=== PATIENT | male | born 1980 | race African-American/Black ===

== ENCOUNTER 2022-02-14 10:58 | Day surgery (SDC) | payer OTHER ==
[~2022-02-14 10:58] MED LIST: SODIUM CHLORIDE 0.9% 1,000 ML IV SCH
[2022-02-14] MEDS ORDERED: SODIUM CHLORIDE 0.9% 1,000 ML IV ONE (12:06)
[2022-02-14] MEDS ORDERED: METOCLOPRAMIDE 5 MG/ML 2 ML VIAL IVP STA (12:18)
[2022-02-14 12:43] LABS: Basophils # (A) 0.1 k/uL (0-0.2); Basophils % (A) 1 %; Eosinophils # (A) 0.1 k/uL (0-0.7); Eosinophils % (A) 1 %; HGB 17.7 gm/dL (13.0-17.5); Lymphocytes # (A) 1.7 k/uL (1.0-4.8); Lymphocytes % (A) 22 %; MCH 29.5 pg (25.0-35.0); MCHC 32.7 g/dL (31.0-37.0); MCV 90.4 fL (80.0-100.0); Mean Platelet Volume 7.7; Monocytes # (A) 0.3 k/uL (0-1.0); Monocytes % (A) 3 %; Neutrophils # (A) 5.5 k/uL (1.3-7.7); Neutrophils % (A) 71 %; Platelet Count 162 k/uL (150-450); RBC 5.98 m/uL (4.30-5.90); RDW 14.2 % (11.5-15.5); WBC 7.8 k/uL (3.8-10.6)
[2022-02-14 12:46] LABS: Calcium 9.4 mg/dL (8.4-10.2); Potassium 4.5 mmol/L (3.5-5.1)
[2022-02-14] MEDS: FAMOTIDINE 20 MG/2 ML VIAL IV SCH (13:04)
[2022-02-14] MEDS ORDERED: PHENYLEPHRINE-0.9% NACL SYG 1,000 MCG/10 ML SYRINGE ONE (15:07)
[2022-02-14] MEDS ORDERED: HEPARIN SODIUM,PORCINE 10,000 UNIT/ML 1 ML VIAL ONE (15:07)
[2022-02-14] MEDS ORDERED: SUCCINYLCHOLINE CHLORIDE 100 MG/5 ML SYR IV ONE (15:07)
[2022-02-14] MEDS ORDERED: fentaNYL (PF) 50 MCG/ML 2 ML AMP ONE (15:07)
[2022-02-14] MEDS ORDERED: ETOMIDATE 2 MG/ML 10 ML VIAL ONE (15:07)
[2022-02-14] MEDS ORDERED: LIDOCAINE 2% INJ 20 MG/ML (2 ML VIAL) ONE (15:07)
[2022-02-14] MEDS ORDERED: MIDAZOLAM 2 MG/2 ML VIAL ONE (15:07)
[2022-02-14] MEDS ORDERED: LIDOCAINE 1% INJ 10MG/ML (20 ML MDV) SQ ONE (15:51)
[2022-02-14] MEDS ORDERED: LIDOCAINE 1% PF 10 MG/ML (5 ML AMP) SQ ONE (15:51)
[2022-02-14] MEDS ORDERED: HEPARIN SOD,PORK IN 0.45% NACL 25,000 UNIT in 0.45% NACL 1 250ML.BAG IV ONE (15:55)
[2022-02-14] MEDS ORDERED: LACTATED RINGERS 1,000 ML IV ONE ×2 (15:55→18:55)
[2022-02-14] MEDS ORDERED: HEPARIN SODIUM,PORCINE 10,000 UNIT in SODIUM CHLORIDE 0.9% 1,000 ML IRRIGATION ONE (17:29)
[2022-02-14] MEDS ORDERED: IOPAMIDOL-370 100ML BTL INJ ONE (17:39)
--- NOTE | 2022-02-14 19:08 | P.HPCAR ---
History of Present Illness This is Dr. Chaves dictating an H/P on this patient The patient was interviewed and examined IMPRESSION / ASSESSMENT: Paroxysmal atrial fibrillation, symptomatic Hypertrophic cardio myopathy History of typical atrial flutter ablation PLAN: A. fib ablation with PVI and linear ablation and focus ablation as appropriate HPI Patient has recurrent episodes of paroxysmal atrial fibrillation He is underlying hypertrophic cardiomyopathy He is expressing palpitations at this time and is in A. fib with RVR No fever chills cough No chest discomfort no syncope ROS: No fever chills or rigors, no cough, phlegm or expectoration, no nausea, vomiting or diarrhea, no hematuria, dysuria, no musculoskeletal complaints, no strokes or seizures, no skin lesions. EXAMINATION: Afebrile 97 for 7F pulse rate 9010 beats a minute respirations normal blood pressure 140 296. His mercury Breath sounds are equal bilaterally but there are no rhonchi no crackles Heart sounds are irregular, soft systolic murmur Abdomen soft Extremities warm no edema No JVD REVIEW OF LABS, ECG & MEDICAL DATA White normal Hemoglobin 17 Normal electrolytes Creatinine 1.49 Physical Exam Vitals: Vital Signs Temp Pulse Resp BP Pulse Ox 02/14/22 15:08 97.7 F 96 16 142/96 100 Intake and Output 02/14/22 02/14/22 02/14/22 06:59 14:59 22:59 Intake Total 100 1773 Output Total 300 Balance 100 1473 Intake: IV 100 1773 Output: Urine 300 Other: Weight 81.1 kg 81.1 kg Past Medical History Additional Past Medical History / Comment(s): SEE CARDIAC HX IN [facility] History of Any Multi-Drug Resistant Organisms: None Reported Past Surgical History: Ablation Additional Past Surgical History / Comment(s): CARDIAC ABLATION X 2 IN [facility]. Past Anesthesia/Blood Transfusion Reactions: No Reported Reaction Additional Past Anesthesia/Blood Transfusion Reaction / Comment(s): HAS NEVER HAD GENERAL ANESTHESIA Past Psychological History: No Psychological Hx Reported Smoking Status: Current every day smoker Additional Past Alcohol Use History / Comment(s): HAS SMOKED OVER 20 YRS ABOUT 2 PPW Past Drug Use History: Marijuana Physical Examination Vital Signs Temp Pulse Resp BP Pulse Ox 02/14/22 15:08 97.7 F 96 16 142/96 100 Intake and Output 02/14/22 02/14/22 02/14/22 06:59 14:59 22:59 Intake Total 100 1773 Output Total 300 Balance 100 1473 Intake: IV 100 1773 Output: Urine 300 Other: Weight 81.1 kg 81.1 kg Results 02/14/22 12:15 02/14/22 12:15 CBC 02/14/22 Range/Units 12:15 WBC 7.8 (3.8-10.6) k/uL RBC 5.98 H (4.30-5.90) m/uL Hgb 17.7 H (13.0-17.5) gm/dL Hct 54.0 H (39.0-53.0) % Plt Count 162 (150-450) k/uL Comprehensive Metabolic Panel 02/14/22 Range/Units 12:15 Sodium 142 (137-145) mmol/L Potassium 4.5 (3.5-5.1) mmol/L Chloride 104 (98-107) mmol/L Carbon Dioxide 25 (22-30) mmol/L BUN 13 (9-20) mg/dL Creatinine 1.49 H (0.66-1.25) mg/dL Glucose 93 (74-99) mg/dL Calcium 9.4 (8.4-10.2) mg/dL Current Medications Generic Name Dose Route Start Last Admin Trade Name Freq PRN Reason Stop Dose Admin Famotidine 20 mg 02/14/22 12:30 02/14/22 13:04 Famotidine 20 Mg/2 Ml Vial IV 03/16/22 12:31 20 mg DAILY ROSHNI Administration Sodium Chloride 1,000 mls @ 20 mls/hr 02/14/22 06:07 Saline 0.9% IV 03/16/22 06:08 .Q24H ROSHNI Intake and Output 02/14/22 02/14/22 02/14/22 06:59 14:59 22:59 Intake Total 100 1773 Output Total 300 Balance 100 1473 Intake: IV 100 1773 Output: Urine 300 Other: Weight 81.1 kg 81.1 kg Patient Weight 02/15/22 06:59 Weight 81.1 kg 02/14/22 12:15 02/14/22 12:15
--- NOTE | 2022-02-14 19:15 | P.EPPROC ---
- EP Procedure Note Electrophysiology Procedure Note: PROCEDURE A. 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 fib ablation/pulmonary vein isolation of all veins using cryo- ablation Linear ablation in the left atrial roof, successful Focal ablation outside the right superior pulmonary vein posteriorly and and telemetry which resulted in for the organization of the tachycardia Complete entrance block in all 4 veins confirmed with voltage Complete line of block in the posterior left atrial roof confirmed with voltage mapping No evidence for phrenic nerve injury Esophageal deflection YES, left-sided esophagus Residual left atrial tachycardia 220-230 ms with a somewhat eccentric left atrial activation in the coronary sinus poles Electrical cardioversion with a synchronized shock across the chest YES, prolonged RI interval to273 ms sinus PROCEDURE DETAILS Patient was brought to the EP lab in a fasting state after obtaining written informed consent. Procedure performed under general anesthesia Esophagus was intubated. Esophageal temperature monitoring with circa catheter. Esophageal deflection with an endoscope to avoid hypothermia of the esophagus. After initial muscle relaxant use, muscle relaxants were not given thereafter in order to assess phrenic nerve during procedure. Patient prepped and draped as per protocol Cryo ablation-set up with standard preparation of the cryoablation tools done. Femoral Venous access obtained on the right and left groins and sheaths placed Diagnostic catheters for the high right atrium, phrenic nerve stimulation and pacing, His bundle, coronary sinus placed Intracardiac echo catheter placed. Long sheath placed in the right atrium Left and right transseptal catheterization performed under intracardiac echo guidance. Intravenous heparin with aCT above 300 Later, catheter positioning and balloon positioning in the left atrium and pulmonary veins, under intracardiac echo guidance Diagnostic EP study with coronary sinus pacing and recording Baseline measurements: QRS 130 ms, RI interval to 73 ms, QT 451 ms Transseptal catheterization performed RA pressure 27/16/22 LA pressure 42/21/29 Transseptal catheterization performed with standard sheath. The cryoablation sheath was then placed with an over the wire exchange without any acute complications. The cryoablation balloon was placed in the office of each pulmonary vein and all 4 pulmonary veins were isolated. IV dye was injected to confirm occlusion. Goal: achieve complete occlusion of the pulmonary vein, achieve -30 degrees C at 30 seconds and achieve -40 degrees C at 60 seconds and a time to effect of less than 60 seconds. If not, the balloon was repositioned to obtain this result After completion of Cryoblation with durations from 180-240 seconds, entrance block was confirmed with the Attain circular catheter in a roving fashion around the antrum of the pulmonary veins Phrenic nerve pacing was performed from the SVC, right innominate vein area and diaphragm voltage was monitored. Diaphragmatic contractions were also monitored manually for strength of contraction. At the end of the procedure the Achieve catheter was once again used to check for entrance block Phrenic nerve stimulation was performed to confirm diaphragmatic stimulation the end of the procedure Cine fluoroscopy was performed at the very end of the procedure to confirm movement of both diaphragms with inspiration and expiration At the end of the procedure the patient was extubated Venous sheaths were removed and hemostasis assured with a closure device PROCEDURES PERFORMED Diagnostic EP study CS pacing and recording Left and right transseptal catheterization 3-D mapping of the tachycardia Intracardiac echocardiography Pulmonary vein isolation with transseptal and comprehensive EPS, [id number] Left atrial roof line, +[id number] Focal ablation, left atrium, +[id number] Electrical cardioversion with a synchronized shock across the chest [id number] Long procedure Extended procedure duration on account of a very stiff fossa ovalis, very large left atrium with large pulmonary veins Segmental isolation of the left superior and the right superior pulmonary veins. Long left atrial roof but successful and complete linear ablation on the posterior aspect of the left atrial roof
[2022-02-14] MEDS ORDERED: ACETAMINOPHEN TAB 325 MG TAB PO PRN (19:19)
[2022-02-14] MEDS ORDERED: ACETAMINOPHEN IV (For NPO) 1,000 MG/100 ML VIAL IVPB ONE (19:40)
[2022-02-14] MEDS ORDERED: ACETAMINOPHEN IV (For NPO) 1,000 MG in EMPTY BAG 1 BAG IVPB ONE (20:00)
[2022-02-14] MEDS ORDERED: RIVAROXABAN 20 MG TAB PO SCH (21:00)
[2022-02-14] MEDS: FUROSEMIDE 40 MG TAB PO SCH (22:26)
[2022-02-15 03:54] VITALS: TEMP 98.1
[2022-02-15] MEDS: FAMOTIDINE 20 MG/2 ML VIAL IV SCH (07:07)
[2022-02-15 07:36] VITALS: BP 118/80; PULSE 70; RESP 18
--- NOTE | 2022-02-15 07:53 | P.DS ---
Providers Attending physician: Hayden Chaves Primary care physician: Alex Strauss [facility] Course: Patient is doing well from a cardiac standpoint. No chest discomfort dizziness lightheadedness No groin problems overnight On examination normal breath sounds No JVD S1 is normal S2 is normal soft systolic murmur Groins of healed well no hematoma Impression Recurrent paroxysmal atrial fibrillation Status post pulmonary vein isolation, left atrial linear ablation in the roof and focal ablation outside the antrum of the right superior pulmonary vein Greater organization of atrial fibrillation with somewhat eccentric activation Electrical cardioversion sinus rhythm First degree AV block 240 ms Twelve-lead EKG today shows sinus rhythm first degree AV block T-wave inversions V5 and V6 Plan continue xarelto Continue low-dose beta blockers Discharge home and follow with Dr. Garcia within a week Instructions given to the patient Plan - Discharge Summary Discharge Rx Participant: No New Discharge Prescriptions: New RX: Rivaroxaban [Xarelto] 20 mg PO DAILY #90 tab Discontinued Rivaroxaban [Xarelto] 25 mg PO DAILY No Action RX: Metoprolol Tartrate 25 mg PO QAM Discharge Medication List RX: Metoprolol Tartrate 25 mg PO QAM 02/13/22 [History] RX: Rivaroxaban [Xarelto] 20 mg PO DAILY #90 tab 02/14/22 [Rx] Follow up Appointment(s)/Referral(s): Rafael Pozo MD [STAFF PHYSICIAN] - 1 Week Activity/Diet/Wound Care/Special Instructions: Post EP study - Ablation instructions 1. Keep access sites dry for 2 days. 2. No heavy lifting or straining for 2 days. 3. Avoid bending the hips repeatedly for 2 days. 4. You may go up and down stairs slowly Call if the following is noted 1. Bleeding, increasing swelling or pain at the access sites. 2. Increasing chest discomfort, especially upon taking a deep breath. 3. Increasing shortness of breath, at rest or with exertion. 4. Undue cough / phlegm 5. Difficulty or pain while swallowing. 6. Pain or change in color in the extremities. 7. Fever, chills, rigors. 8. Increasing headache or neurologic symptoms. 9. Dizziness, fainting, palpitations Continue current medications without any change Continue Xarelto
[2022-02-15] MEDS: FUROSEMIDE 40 MG TAB PO SCH (08:26)
[2022-02-15] MEDS ORDERED: METOPROLOL TARTRATE 25 MG TAB PO SCH (09:00)
== END 2022-02-15 11:14 | disposition home or self-care (01) ==
LOC: CATHEP 10:58 → 6NMEDSUR 19:03 → CATHEP 02-15 11:14
PROVIDERS: ATTEND Internal Medicine Clinical Cardiac Electrophysiology
DX: I48.0 Paroxysmal atrial fibrillation (principal); I08.1 Rheumatic disorders of both mitral and tricuspid valves; I44.0 Atrioventricular block, first degree; I42.2 Other hypertrophic cardiomyopathy; I51.7 Cardiomegaly; R00.2 Palpitations; Z86.79 Personal history of other diseases of the circulatory system; F17.210 Nicotine dependence, cigarettes, uncomplicated; Z82.49 Family history of ischemic heart disease and other diseases of the circulatory system; Z97.2 Presence of dental prosthetic device (complete) (partial); Z87.19 Personal history of other diseases of the digestive system; Z79.01 Long term (current) use of anticoagulants; Z79.899 Other long term (current) drug therapy
CPT/HCPCS: 92960; 93656; 93657; 80048; 85025; C1894 ×3; C1769 ×5; C1760; C1730 ×2; C1759; C1893; C1733; C1766; C1732; J2250; J1644 ×2; J2765; J2001 ×2; J3010; J0131; J2370; J0330; Q9967; 80051; 82565; 84520; 85027; 87635

== ENCOUNTER → 2022-02-14 | Outpatient (CLI) | payer OTHER ==
[2022-02-14 12:15] LABS: HCT 50.2 % (39.0-53.0); HGB 16.2 gm/dL (13.0-17.5); MCH 29.1 pg (25.0-35.0); MCHC 32.3 g/dL (31.0-37.0); MCV 90.2 fL (80.0-100.0); Platelet Count 160 k/uL (150-450); RBC 5.56 m/uL (4.30-5.90); RDW 14.3 % (11.5-15.5); WBC 7.2 k/uL (3.8-10.6)
[2022-02-14 12:22] LABS: Potassium 5.1 mmol/L (3.5-5.1)
== END | disposition home or self-care (01) ==
LOC: LABPAT 11:08
PROVIDERS: ATTEND Internal Medicine Clinical Cardiac Electrophysiology
DX: Z01.812 Encounter for preprocedural laboratory examination (principal); I48.0 Paroxysmal atrial fibrillation
CPT/HCPCS: 80051; 82565; 84520; 85027; 87635; C9803

== ENCOUNTER 2023-09-17 11:33 | Inpatient (IN) | payer OTHER ==
--- NOTE | 2023-09-17 11:46 | ED ---
General Adult HPI - General Source: patient, family, RN notes reviewed Mode of arrival: ambulatory Limitations: altered mental status <Dioni Strong - Last Filed: 09/17/23 11:45> <Trung Pineda - Last Filed: 09/17/23 17:03> - General Stated complaint: medication reaction Time Seen by Provider: 09/17/23 11:45 - History of Present Illness Initial comments: 43-year-old male presents emergency Department with multiple complaints. Patient presents today for increasing swelling, confusion, altered mental status. Patient is here with family who states she is not answering questions appropriately the unsure exactly when this started but believes it started sometime yesterday. Patient was tried calling cardiology for medications for h is increase in swelling, cardiac history and advised him come emergency department. He does complain of headache. (Dioni Strong) This is a 43-year-old male who presents emergency Department as he is altered. According to the cousin she knows that he has had multiple ablations and does smoke marijuana but I did not she does not know much about his history. She states that he has not been taking his meds as of late. Patient is unable to give us any history because he is confused. Patient is alert and oriented 1 only. There is no other history available at this time. Cousin states that yesterday he was acting a little different according to her son but no specific symptoms been given. (Trung Pineda) - Related Data Home Medications Medication Instructions Recorded Confirmed Metoprolol Succinate [Toprol XL] 50 mg PO BID 09/17/23 09/17/23 Pantoprazole [Protonix] 40 mg PO DAILY 09/17/23 09/17/23 Allergies Allergy/AdvReac Type Severity Reaction Status Date / Time No Known Allergies Allergy Verified 09/17/23 13:26 Review of Systems ROS Other: All systems not noted in ROS Statement are negative. <Dioni Strong - Last Filed: 09/17/23 11:45> ROS Other: All systems not noted in ROS Statement are negative. <Trung Pineda - Last Filed: 09/17/23 17:03> ROS Statement: Those systems with pertinent positive or pertinent negative responses have been documented in the HPI. General Exam <Dioni Strong - Last Filed: 09/17/23 11:45> <Trung Pineda - Last Filed: 09/17/23 17:03> - General Exam Comments Initial Comments: Visual Physical Exam Vital signs reviewed General: Well-appearing, nontoxic, no acute distress. Head: Normocephalic, atraumatic Eyes: PERRLA, EOMI ENT: Airway patent Chest: Nonlabored breathing Skin: No visual rash, normal skin tone Neuro: Alert and oriented 3 Musculoskeletal: No gross abnormalities (Dioni Strong) GENERAL: Patient is well-developed and well-nourished. Patient is nontoxic and well- hydrated and is in no acute distress. ENT: Neck is soft and supple. No significant lymphadenopathy is noted. Oropharynx is clear. Moist mucous membranes. Neck has full range of motion without eliciting any pain. EYES: The sclera were anicteric and conjunctiva were pink and moist. Extraocular movements were intact and pupils were equal round and reactive to light. Eyelids were unremarkable. PULMONARY: Unlabored respirations. Good breath sounds bilaterally. No audible rales rhonchi or wheezing was noted. CARDIOVASCULAR: 150 bpm normal regular rhythm ABDOMEN: Soft and nontender with normal bowel sounds. SKIN: Skin is clear with no lesions or rashes and otherwise unremarkable. NEUROLOGIC: Patient is alert and oriented 1. Cranial nerves II through XII are grossly intact. Motor and sensory are also intact. Normal speech, volume and content. Symmetrical smile. MUSCULOSKELETAL: Normal extremities with adequate strength and full range of motion. LYMPHATICS: No significant lymphadenopathy is noted PSYCHIATRIC: Normal psychiatric evaluation. (Trung Pineda) Course Vital Signs 09/17/23 09/17/23 09/17/23 12:02 14:19 15:51 Temperature 97.5 F L Pulse Rate 144 H 101 H 80 Respiratory 20 18 20 Rate Blood Pressure 114/82 120/90 123/84 O2 Sat by Pulse 92 L 97 98 Oximetry Medical Decision Making <Dioni Strong - Last Filed: 09/17/23 11:45> - Lab Data Result diagrams: 09/17/23 12:26 09/17/23 12:26 <Trung Pineda - Last Filed: 09/17/23 17:03> - Medical Decision Making I completed the quick note portion of this chart signed Dioni Strong PA-C (Dioni Strong) EKG is interpreted by myself. EKG shows atrial flutter at 139 bpm QRS is 111 QT interval is 292 QTC is 388. Was pt. sent in by a medical professional or institution (STERLING Burton, SENIOR PATIENT ACCOUNT REPRESENTATIVE, urgent care, hospital, or prison...) When possible be specific @ -No Did you speak to anyone other than the patient for history (EMS, parent, family, police, friend...)? What history was obtained from this source @ -Patient's family member gave all the history Did you review nursing and triage notes (agree or disagree)? Why? @ -I reviewed and agree with nursing and triage notes Were old charts reviewed (outside hosp., previous admission, EMS record, old EKG, old radiological studies, urgent care reports/EKG's, prison records)? Report findings @ -I reviewed prior charts prior lab work Differential Diagnosis (chest pain, altered mental status, abdominal pain women, abdominal pain men, vaginal bleeding, weakness, fever, dyspnea, syncope, headache, dizziness, GI bleed, back pain, seizure, CVA, palpatations, mental health, musculoskeletal)? @ -Differential Altered Mental Status: Hypoglycemia, DKA, hypercapnia, ETOH, overdose, CO poisoning, trauma, myxedema coma, HTN encephalopathy, infection, encephalitis, psychosis, intercranial hemo rrhage, hepatic encephalopathy, meningitis, CVA, this is not meant to be an all- inclusive list EKG interpreted by me (3pts min.). @ -As above X-rays interpreted by me (1pt min.). @ -Chest x-ray shows acute pulmonary edema CT interpreted by me (1pt min.). @ -CT chest shows no pulmonary embolism patient has bilateral small pleural effusions. CT of the brain shows a area of infarct that is subacute U/S interpreted by me (1pt. min.). @ -None done What testing was considered but not performed or refused? (CT, X-rays, U/S, labs)? Why? @ -None What meds were considered but not given or refused? Why? @ -None Did you discuss the management of the patient with other professionals (professionals i.e. STERLING Burton, SENIOR PATIENT ACCOUNT REPRESENTATIVE, lab, RT, psych nurse, manager social work, camouflage specialist, teacher, medical scientific officer, proposal development manager)? Give summary @ -I discussed the case with Dr. Jack and Dr. Shaver. Was smoking cessation discussed for >3mins.? @ -No Was critical care preformed (if so, how long)? @ -35 minutes Were there social determinants of health that impacted care today? How? (Homelessness, low income, unemployed, alcoholism, drug addiction, transportation, low edu. Level, literacy, decrease access to med. care, long-term, rehab)? @ -No Was there de-escalation of care discussed even if they declined (Discuss DNR or withdrawal of care, Hospice)? DNR status @ -No What co-morbidities impacted this encounter? (DM, HTN, Smoking, COPD, CAD, Cancer, CVA, ARF, Chemo, Hep., AIDS, mental health diagnosis, sleep apnea, morbid obesity)? @ -None Was patient admitted / discharged? Hospital course, mention meds given and route, prescriptions, significant lab abnormalities, going to OR and other pertinent info. @ - Dr. Shaver indicated that starting heparin was okay. I wrote admitting orders consulted cardiology and neuro. Patient was started on Cardizem for the atrial flutter at 150 beats a minute and brought the patient's heart rate down under 100. Heparin was started as soon as Dr. Shaver saw the patient and agreed it could be started. He did not want a bolus of heparin Undiagnosed new problem with uncertain prognosis? @ -No Drug Therapy requiring intensive monitoring for toxicity (Heparin, Nitro, Insulin, Cardizem)? @ -No Were any procedures done? @ -No Diagnosis/symptom? @ -Atrial flutter with rapid ventricular response Acute, or Chronic, or Acute on Chronic? @ -Acute Uncomplicated (without systemic symptoms) or Complicated (systemic symptoms)? @ -Complicated Side effects of treatment? @ -No Exacerbation, Progression, or Severe Exacerbation? @ -No Poses a threat to life or bodily function? How? (Chest pain, [place], [place], pneumonia, PE, COPD, DKA, ARF, appy, cholecystitis, CVA, Diverticulitis, Homicidal, Suicidal, threat to staff... and all critical care pts) @ -Yes this facility to poor perfusion and end organ dysfunction Diagnosis/symptom? @ -CVA Acute, or Chronic, or Acute on Chronic? @ -Acute Uncomplicated (without systemic symptoms) or Complicated (systemic symptoms)? @ -Complicated Side effects of treatment? @ -none Exacerbation, Progression, or Severe Exacerbation] @ -no Poses a threat to life or bodily function? @ -Yes this could lead to further morbidity secondary to the stroke. Diagnosis/symptom? @ -Altered mental status Acute, or Chronic, or Acute on Chronic? @ -Acute Uncomplicated (without systemic symptoms) or Complicated (systemic symptoms)? @ -Complicated Side effects of treatment? @ -none Exacerbation, Progression, or Severe Exacerbation] @ -no Poses a threat to life or bodily function? @ -no (Trung Pineda) - Lab Data Lab Results 09/17/23 09/17/23 09/17/23 Range/Units 12:26 12:26 12:26 WBC 9.0 (3.8-10.6) k/uL RBC 5.08 (4.30-5.90) m/uL Hgb 15.1 (13.0-17.5) gm/dL Hct 46.3 (39.0-53.0) % MCV 91.2 (80.0-100.0) fL MCH 29.8 (25.0-35.0) pg MCHC 32.7 (31.0-37.0) g/dL RDW 13.8 (11.5-15.5) % Plt Count 225 (150-450) k/uL MPV 7.3 Neutrophils % 79 % Lymphocytes % 15 % Monocytes % 3 % Eosinophils % 1 % Basophils % 1 % Neutrophils # 7.1 (1.3-7.7) k/uL Lymphocytes # 1.3 (1.0-4.8) k/uL Monocytes # 0.3 (0-1.0) k/uL Eosinophils # 0.1 (0-0.7) k/uL Basophils # 0.1 (0-0.2) k/uL PT 13.0 H (10.0-12.5) sec INR 1.2 H (<1.2) APTT 24.3 (22.0-30.0) sec D-Dimer 5.46 H (<0.60) mg/L FEU VBG pH (7.31-7.41) VBG pCO2 (37-51) mmHg VBG HCO3 (24-28) mmol/L Sodium (137-145) mmol/L Potassium (3.5-5.1) mmol/L Chloride (98-107) mmol/L Carbon Dioxide (22-30) mmol/L Anion Gap mmol/L BUN (9-20) mg/dL Creatinine (0.66-1.25) mg/dL Est GFR (CKD-EPI)AfAm (>60 ml/min/1.73 sqM) Est GFR (CKD-EPI)NonAf (>60 ml/min/1.73 sqM) Glucose (74-99) mg/dL Plasma Lactic Acid Paxton (0.7-2.0) mmol/L Calcium (8.4-10.2) mg/dL Magnesium (1.6-2.3) mg/dL Total Bilirubin (0.2-1.3) mg/dL AST (17-59) U/L ALT (4-49) U/L Alkaline Phosphatase (38-126) U/L Troponin I (0.000-0.034) ng/mL NT-Pro-B Natriuret Pep pg/mL Total Protein (6.3-8.2) g/dL Albumin (3.5-5.0) g/dL Urine Color Light Yellow Urine Appearance Clear (Clear) Urine pH 5.5 (5.0-8.0) Ur Specific [place] 1.026 (1.001-1.035) Urine Protein Trace H (Negative) Urine Glucose (UA) Negative (Negative) Urine Ketones Negative (Negative) Urine Blood Negative (Negative) Urine Nitrite Negative (Negative) Urine Bilirubin Negative (Negative) Urine Urobilinogen 2.0 (<2.0) mg/dL Ur Leukocyte Esterase Negative (Negative) Urine Opiates Screen Not Detected (NotDetected) Ur Oxycodone Screen Not Detected (NotDetected) Urine Methadone Screen Not Detected (NotDetected) Ur Propoxyphene Screen Not Detected (NotDetected) Ur Barbiturates Screen Not Detected (NotDetected) U Tricyclic Antidepress Not Detected (NotDetected) Ur Phencyclidine Scrn Not Detected (NotDetected) Ur Amphetamines Screen Not Detected (NotDetected) U Methamphetamines Scrn Not Detected (NotDetected) U Benzodiazepines Scrn Not Detected (NotDetected) Urine Cocaine Screen Not Detected (NotDetected) U Marijuana (THC) Screen Detected H (NotDetected) Serum Alcohol mg/dL 09/17/23 09/17/23 09/17/23 Range/Units 12:26 12:26 15:08 WBC (3.8-10.6) k/uL RBC (4.30-5.90) m/uL Hgb (13.0-17.5) gm/dL Hct (39.0-53.0) % MCV (80.0-100.0) fL MCH (25.0-35.0) pg MCHC (31.0-37.0) g/dL RDW (11.5-15.5) % Plt Count (150-450) k/uL MPV Neutrophils % % Lymphocytes % % Monocytes % % Eosinophils % % Basophils % % Neutrophils # (1.3-7.7) k/uL Lymphocytes # (1.0-4.8) k/uL Monocytes # (0-1.0) k/uL Eosinophils # (0-0.7) k/uL Basophils # (0-0.2) k/uL PT (10.0-12.5) sec INR (<1.2) APTT (22.0-30.0) sec D-Dimer (<0.60) mg/L FEU VBG pH (7.31-7.41) VBG pCO2 (37-51) mmHg VBG HCO3 (24-28) mmol/L Sodium 140 (137-145) mmol/L Potassium 5.2 H (3.5-5.1) mmol/L Chloride 108 H (98-107) mmol/L Carbon Dioxide 20 L (22-30) mmol/L Anion Gap 12 mmol/L BUN 15 (9-20) mg/dL Creatinine 1.23 (0.66-1.25) mg/dL Est GFR (CKD-EPI)AfAm 83 (>60 ml/min/1.73 sqM) Est GFR (CKD-EPI)NonAf 71 (>60 ml/min/1.73 sqM) Glucose 102 H (74-99) mg/dL Plasma Lactic Acid Paxton 2.9 H* (0.7-2.0) mmol/L Calcium 9.1 (8.4-10.2) mg/dL Magnesium 1.8 (1.6-2.3) mg/dL Total Bilirubin 2.1 H (0.2-1.3) mg/dL AST 47 (17-59) U/L ALT 31 (4-49) U/L Alkaline Phosphatase 79 (38-126) U/L Troponin I 0.048 H* (0.000-0.034) ng/mL NT-Pro-B Natriuret Pep 6950 pg/mL Total Protein 7.4 (6.3-8.2) g/dL Albumin 3.8 (3.5-5.0) g/dL Urine Color Urine Appearance (Clear) Urine pH (5.0-8.0) Ur Specific [place] (1.001-1.035) Urine Protein (Negative) Urine Glucose (UA) (Negative) Urine Ketones (Negative) Urine Blood (Negative) Urine Nitrite (Negative) Urine Bilirubin (Negative) Urine Urobilinogen (<2.0) mg/dL Ur Leukocyte Esterase (Negative) Urine Opiates Screen (NotDetected) Ur Oxycodone Screen (NotDetected) Urine Methadone Screen (NotDetected) Ur Propoxyphene Screen (NotDetected) Ur Barbiturates Screen (NotDetected) U Tricyclic Antidepress (NotDetected) Ur Phencyclidine Scrn (NotDetected) Ur Amphetamines Screen (NotDetected) U Methamphetamines Scrn (NotDetected) U Benzodiazepines Scrn (NotDetected) Urine Cocaine Screen (NotDetected) U Marijuana (THC) Screen (NotDetected) Serum Alcohol <10 mg/dL 09/17/23 Range/Units 15:08 WBC (3.8-10.6) k/uL RBC (4.30-5.90) m/uL Hgb (13.0-17.5) gm/dL Hct (39.0-53.0) % MCV (80.0-100.0) fL MCH (25.0-35.0) pg MCHC (31.0-37.0) g/dL RDW (11.5-15.5) % Plt Count (150-450) k/uL MPV Neutrophils % % Lymphocytes % % Monocytes % % Eosinophils % % Basophils % % Neutrophils # (1.3-7.7) k/uL Lymphocytes # (1.0-4.8) k/uL Monocytes # (0-1.0) k/uL Eosinophils # (0-0.7) k/uL Basophils # (0-0.2) k/uL PT (10.0-12.5) sec INR (<1.2) APTT (22.0-30.0) sec D-Dimer (<0.60) mg/L FEU VBG pH 7.31 (7.31-7.41) VBG pCO2 51 (37-51) mmHg VBG HCO3 26 (24-28) mmol/L Sodium (137-145) mmol/L Potassium (3.5-5.1) mmol/L Chloride (98-107) mmol/L Carbon Dioxide (22-30) mmol/L Anion Gap mmol/L BUN (9-20) mg/dL Creatinine (0.66-1.25) mg/dL Est GFR (CKD-EPI)AfAm (>60 ml/min/1.73 sqM) Est GFR (CKD-EPI)NonAf (>60 ml/min/1.73 sqM) Glucose (74-99) mg/dL Plasma Lactic Acid Paxton (0.7-2.0) mmol/L Calcium (8.4-10.2) mg/dL Magnesium (1.6-2.3) mg/dL Total Bilirubin (0.2-1.3) mg/dL AST (17-59) U/L ALT (4-49) U/L Alkaline Phosphatase (38-126) U/L Troponin I (0.000-0.034) ng/mL NT-Pro-B Natriuret Pep pg/mL Total Protein (6.3-8.2) g/dL Albumin (3.5-5.0) g/dL Urine Color Urine Appearance (Clear) Urine pH (5.0-8.0) Ur Specific [place] (1.001-1.035) Urine Protein (Negative) Urine Glucose (UA) (Negative) Urine Ketones (Negative) Urine Blood (Negative) Urine Nitrite (Negative) Urine Bilirubin (Negative) Urine Urobilinogen (<2.0) mg/dL Ur Leukocyte Esterase (Negative) Urine Opiates Screen (NotDetected) Ur Oxycodone Screen (NotDetected) Urine Methadone Screen (NotDetected) Ur Propoxyphene Screen (NotDetected) Ur Barbiturates Screen (NotDetected) U Tricyclic Antidepress (NotDetected) Ur Phencyclidine Scrn (NotDetected) Ur Amphetamines Screen (NotDetected) U Methamphetamines Scrn (NotDetected) U Benzodiazepines Scrn (NotDetected) Urine Cocaine Screen (NotDetected) U Marijuana (THC) Screen (NotDetected) Serum Alcohol mg/dL Critical Care Time Critical Care Time: Yes Total Critical Care Time: 35 <Turng Pineda - Last Filed: 09/17/23 17:03> Disposition <Dioni Strong - Last Filed: 09/17/23 11:45> Time of Disposition: 16:59 <Trung Pineda - Last Filed: 09/17/23 17:03> Clinical Impression: Altered mental status, CVA (cerebral vascular accident), Atrial flutter with rapid ventricular response, Acute pulmonary edema Disposition: ADMITTED IP TO THIS HOSP Referrals: Alex Benavides [Primary Care Provider] - 1-2 days
--- NOTE | 2023-09-17 12:16 | XR ---
EXAMINATION TYPE: XR chest 2V DATE OF EXAM: 09/17/2023 12:00 PM CLINICAL INDICATION:Male, 43 years old with history of altered mental status; [facility] COMPARISON: None TECHNIQUE: XR chest 2V Frontal and lateral views of the chest. FINDINGS: Lungs/Pleura: There are hilar opacities bilaterally. There is low lung volumes. There is no evidence of pleural effusion, focal consolidation, or pneumothorax. Pulmonary vascularity: Pulmonary vascular congestion. Heart/mediastinum: Cardiomediastinal silhouette is unremarkable. Musculoskeletal: No acute osseous pathology. IMPRESSION: Mild pulmonary vascular congestion right for volume overload versus pneumonia.
[2023-09-17] MEDS ORDERED: DILTIAZEM DRIP BOLUS FROM BAG 1 MG SOLN IV ONE (12:45)
[2023-09-17] MEDS ORDERED: SODIUM CHLORIDE 0.9% 1,000 ML IV ONE (12:45)
[2023-09-17] MEDS ORDERED: DILTIAZEM 125 MG in SODIUM CHLORIDE 0.9% 100 ML IV SCH (13:00)
[2023-09-17 13:09] LABS: Basophils # (A) 0.1 k/uL (0-0.2); Basophils % (A) 1 %; Eosinophils # (A) 0.1 k/uL (0-0.7); Eosinophils % (A) 1 %; HCT 46.3 % (39.0-53.0); HGB 15.1 gm/dL (13.0-17.5); Lymphocytes # (A) 1.3 k/uL (1.0-4.8); Lymphocytes % (A) 15 %; MCH 29.8 pg (25.0-35.0); MCHC 32.7 g/dL (31.0-37.0); MCV 91.2 fL (80.0-100.0); Mean Platelet Volume 7.3; Monocytes # (A) 0.3 k/uL (0-1.0); Monocytes % (A) 3 %; Neutrophils # (A) 7.1 k/uL (1.3-7.7); Neutrophils % (A) 79 %; Platelet Count 225 k/uL (150-450); RBC 5.08 m/uL (4.30-5.90); RDW 13.8 % (11.5-15.5)
--- NOTE | 2023-09-17 13:14 | CT ---
EXAMINATION TYPE: CT brain wo con DATE OF EXAM: 09/17/2023 COMPARISON: None. HISTORY: AMS CT DLP: 1153.7 mGycm. Automated Exposure Control for Dose Reduction was Utilized. TECHNIQUE: CT scan of the head is performed without contrast. FINDINGS: There is no acute intracranial hemorrhage, mass effect, or midline shift identified. The ventricles and sulci are within normal limits in size. Vague area of low density left anterior tempo ral parietal region near axial image 32 is noted extending inferiorly the axial image 29. The globes are intact and the visualized sinuses are clear. IMPRESSION: No acute intracranial hemorrhage hemorrhage or midline shift is seen. Vague area of low attenuation left temporal parietal region is nonspecific, acute infarct is in differential. MRI noted more sensitive to further evaluate.
[2023-09-17 13:38] LABS: INR 1.2 (<1.2); Partial Thromboplastin Time 24.3 sec (22.0-30.0)
[2023-09-17 14:01] LABS: ALT 31 U/L (4-49); African American GFR (CKD) 83 (>60 ml/min/1.73 sqM); Albumin 3.8 g/dL (3.5-5.0); Alcohol <10 mg/dL; Anion Gap 12 mmol/L; Blood Urea Nitrogen 15 mg/dL (9-20); Calcium 9.1 mg/dL (8.4-10.2); Carbon Dioxide 20 mmol/L (22-30); Chloride 108 mmol/L (98-107); Glucose 102 mg/dL (74-99); Non-African American GFR(CKD) 71 (>60 ml/min/1.73 sqM); Sodium 140 mmol/L (137-145); Total Bilirubin 2.1 mg/dL (0.2-1.3); Total Protein 7.4 g/dL (6.3-8.2)
[2023-09-17 14:08] LABS: AST 47 U/L (17-59); Alkaline Phosphatase 79 U/L (38-126); Magnesium 1.8 mg/dL (1.6-2.3); NT-Pro-B-Type Natriuretic Pept 6950 pg/mL; Potassium 5.2 mmol/L (3.5-5.1)
[2023-09-17 15:20] LABS: VBG PH 7.31 (7.31-7.41)
--- NOTE | 2023-09-17 16:12 | CT ---
EXAMINATION TYPE: CT chest angio for PE DATE OF EXAM: 09/17/2023 COMPARISON: Same day chest x-ray HISTORY: Elevated d-dimer, tachycardia, hx cardiomyopathy, heart cath. CT DLP: 346.4 mGycm. Automated Exposure Control for Dose Reduction was Utilized. CONTRAST: CTA scan of the thorax is performed with IV Contrast, patient injected with 100 mL of Isovue 370, pul monary embolism protocol. MIP Images are created on CT scanner and reviewed. FINDINGS: LUNGS: [id number] sized bilateral pleural effusions. There are multifocal groundglass opacitie s and organizing consolidation in the central bilateral upper lobes and to lesser degree involving th e right greater than left lower lobes and portions of the right middle lobe. MEDIASTINUM: There is satisfactory enhancement of the pulmonary artery and its branches, there is no CT evidence for pulmonary embolism. Prominent and enlarged bilateral hilar lymph nodes are present. T here are enlarged mediastinal lymph nodes. For reference there is a 2.1 x 1.8 cm prevascular mass or lymph node axial image 58. Heart size upper limits of normal. Mild to moderate biatrial dilatation is present. Small pericardial effusion is seen measuring up to 17 mm posterior aspect axial image 119. Reflux of contrast into hepatic veins and IVC is seen. Enlarged main pulmonary artery of 3.5 cm raise s concern for underlying pulmonary hypertension. OTHER: No additional significant abnormality is seen. IMPRESSION: 1. No CT evidence for acute pulmonary embolism. 2. Small to moderate sized right slightly greater than left bilateral pleural effusions. Areas of mul tifocal groundglass opacity organizing consolidations in the bilateral lungs. Correlate for multifoca l multilobar bilateral pneumonias. Small to borderline moderate-sized pericardial effusion. Abnormal thoracic adenopathy is present and may be reactive related to infection or inflammatory process. Foll ow-up advised.
[2023-09-17 16:22] LABS: Appearance,Urine Clear (Clear); Bilirubin,Urine Negative (Negative); Blood,Urine Negative (Negative); Color,Urine Light Yellow; Glucose,Urine (UA) Negative (Negative); Ketones,Urine Negative (Negative); Leukocyte Esterase,Urine Negative (Negative); Nitrite,Urine Negative (Negative); PH, Urine 5.5 (5.0-8.0); Protein,Urine Trace (Negative); Specific Gravity,Urine 1.026 (1.001-1.035)
[2023-09-17 16:42] LABS: Amphetamine Screen,Urine Not Detected (NotDetected); Barbiturate Screen,Urine Not Detected (NotDetected); Benzodiazepines Screen,Urine Not Detected (NotDetected); Cocaine Screen,Urine Not Detected (NotDetected); Methadone Screen, Urine Not Detected (NotDetected); Opiate Screen,Urine Not Detected (NotDetected); Oxycodone Screen, Urine Not Detected (NotDetected); Phencyclidine Screen,Urine Not Detected (NotDetected); Tricyclic Antidepressant,Urine Not Detected (NotDetected); Urn Cannabinoid Scrn Detected (NotDetected)
[2023-09-17] MEDS ORDERED: HEPARIN SOD,PORK IN 0.45% NACL 25,000 UNIT in 0.45% NACL 1 250ML.BAG IV SCH (17:00)
[2023-09-17] MEDS ORDERED: ASPIRIN 325 MG TAB PO STA (17:00)
[2023-09-17] MEDS: METOPROLOL SUCCINATE (ER) 50 MG TAB.ER.24H PO SCH (22:10)
[2023-09-18] MEDS ORDERED: ASPIRIN 325 MG TAB PO SCH (09:00)
--- NOTE | 2023-09-18 09:17 | P.CNNES ---
History of Present Illness Consult date: 09/17/23 Requesting physician: Trung Pineda Reason for Consult: CVA History of Present Illness: Patient is a 43-year-old right-handed male with history of atrial fibrillation, on Xarelto, was brought to the hospital by his cousin today at 11:33 AM for strokelike symptoms. Patient's cousin was also present, and both of them provided the history. Patient's cousin noticed that this morning he was trying to make an appointment with his doctor's office and not able to comprehend what the field secretary was telling. Apparently they made an appointment for him for 10/02/2023 at 10:30 AM, but patient kept on saying "just give me a number". She told him numerous times about the date and the time of appointment, but he kept on saying the same phrase. Patient's cousin noticed that he knew what he wanted to say, but was not coming out correctly. He did not understand what was going on. She also noticed that he was seeing staff while talking to the doctor, that did not make sense. She was telling him correctly, but he was not registering it. Patient at present states that he does not drink significantly, but the last time he drank was on Sunday night (2 days ago) between 5:30 to 8:30 PM. Prior to that he had drank about a 1-1/2 months prior. He drinks some beer egg notch but not much. He states that that night he just stayed quiet and did not talk much. Yesterday on Sunday, he said he was looking at the stuff on his camera on the cell phone, but it was "not coming together"when he was trying to read. He was missing some part of the vision in the right eye. Due to these symptoms, patient's cousin brought into the hospital. Patient denies any slurred speech, facial droop, focal numbness, tingling. White of signs on arrival blood pressure 114/82, pulse is 144, temperature 97.5. Blood test shows normal CBC, INR is 1.2, VBG with pH 7.31, pCO2 51, HCO3 26. Sodium is normal, potassium 5.2, renal functions, hepatic panel is normal. Troponin is mildly elevated 0.048. Plasma lactate 2.9. UA is negative, urine drug screen positive for marijuana. Chest x-ray revealed mild pulmonary vascular congestion, volume overload versus pneumonia. EKG shows atrial flutter with rapid ventricular rate of 149. CT head revealed no acute intracranial hemorrhage or midline shift. Vague area of low attenuation left temporal parietal region, is nonspecific, acute infarct is in differential. I personally reviewed CT head, and appears subacute ischemic stroke. CTA of the chest revealed no acute pulmonary embolism. Small to moderate sized right slightly greater than left bilateral pleural effusions. Areas of multifocal groundglass opacity organizing consolidations in the bilateral lungs. Correlate for multifocal multi lobar bilateral pneumonia. Small to borderline moderate sized pericardial effusion. Abnormal thoracic adenopathy is present and may be reactive related to infection or inflammatory process. Patient was hospitalized at [facility] from 08/30/2023 to 09/04/2023, diagnosed with sepsis. He was discharged on cefuroxime 500 mg twice a day for 5 days for 5 days, doxycycline 100 mg twice a day for 5 days, also Xarelto 20 mg, recommended to start from 09/05/2023. Patient's Chem-7 showed BUN 16, creatinine 1.45. AST is 55, ALT 133. Repeat Chem-20 again showed elevated AST 78, and ALT 151. Total bilirubin elevated 1.6. CBC with WBC 12.0 hemoglobin 14.1 Patient was discharged on diltiazem 30 mg every 8 hours, Xarelto 20 mg, metoprolol 50 mg twice a day, pantoprazole 40 mg. Patient's bottle of Xarelto that was filled on 09/04/2023 had 28 out of 30 tablets still present in the bottle. Patient tells me that he was not taking Xarelto, because once he bled, continued bleeding for 2 days. Patient has history of paroxysmal atrial fibrillation as far as 01/25/2022. Patient had undergone pulmonary vein isolation, left atrial linear ablation in the groove and focal ablation outside the antrum of the right superior pulmonary vein. Patient complaint of degenerative disc disease for last 4 weeks, for which she is taking Norflex. Patient smokes marijuana, uses "couple hits". He is not a heavy drinker, except when he was a teenager. Review of Systems Constitutional: Reports chills (hot and cold), Denies fever Eyes: right loss of vision (Gone now), denies blurred vision, denies pain Ears: deny: decreased hearing, ear discharge Ears, nose, mouth and throat: Reports headache (Earlier but gone), Denies sore throat Cardiovascular: Reports shortness of breath, Denies chest pain Respiratory: Reports cough with sputum (At night), Reports wheezing Gastrointestinal: Denies abdominal pain, Denies diarrhea, Denies nausea, Denies vomiting Genitourinary: Denies incontinence, Denies urinary frequency Musculoskeletal: Reports low back pain, Denies neck pain Integumentary: Denies pruritus, Denies rash Neurological: Reports as per HPI, Reports aphasia Psychiatric: Reports anxiety, Reports depression Hematologic/Lymphatic: Denies easy bleeding, Denies easy bruising Past Medical History Past Medical History: Atrial Fibrillation Additional Past Medical History / Comment(s): cardiomyopathy History of Any Multi-Drug Resistant Organisms: None Reported Past Surgical History: No Surgical Hx Reported Additional Past Surgical History / Comment(s): cardiac ablation Past Psychological History: No Psychological Hx Reported Past Alcohol Use History: None Reported Past Drug Use History: Marijuana Medications and Allergies Home Medications Medication Instructions Recorded Confirmed Type Metoprolol Succinate [Toprol XL] 50 mg PO BID 09/17/23 09/17/23 History Pantoprazole [Protonix] 40 mg PO DAILY 09/17/23 09/17/23 History Allergies Allergy/AdvReac Type Severity Reaction Status Date / Time No Known Allergies Allergy Verified 09/17/23 13:26 Physical Examination - Vital Signs Vital Signs: Vital Signs Temp Pulse Resp BP Pulse Ox 09/17/23 15:51 80 20 123/84 98 09/17/23 14:19 101 H 18 120/90 97 09/17/23 12:02 97.5 F L 144 H 20 114/82 92 L Intake and Output 09/17/23 09/17/23 09/17/23 06:59 14:59 22:59 Other: Weight 77.111 kg Patient is a middle aged Afro-[place] male, in no acute distress. He sometimes gets emotional because of aphasia. Patient is alert awake. Patient has some expressive aphasia. He cannot repeat. He has some naming difficulties, as far knuckles, he was seeing "fingertips". He was able to name earlobe and for eyeglasses, he said "eyes" only. He has some paraphasic errors, as he said "which" for watch. He has very mild slurring. Attention, concentration intact and fund of knowledge is difficult to assess because of some aphasia. Patient can read and was able to write. Patient with conversation would have significant paraphasic errors and at times better expresses himself other times more difficulty. Then he gets emotional. On cranial nerve examination, pupils are equal, round and reacting to light, visual wyatt are full on confrontation, with no neglect on double simultaneous stimulation. Extraocular muscles are intact with no nystagmus. Face is symmetric, tongue protrudes to the midline. Palatal elevation and sensation normal, hearing and shoulder shrug normal, facial sensation normal. On muscle strength testing, there is no pronator drift and the strength is normal in arms and legs distally and proximally. Deep tendon reflexes are symmetric 2 at the biceps, 2 brachioradialis, 1+ at the knees, 0 ankles and plantars are flat bilaterally. Sensory to touch is equal with no neglect on double simultaneous stimulation. Cerebellar function showed no ataxia for [id number] testing. No dysdiadocho kinesia. No ataxia for [id number]-[id number] testing on either side. Tone and bulk of muscles normal. Gait deferred.. On general examination, there is no carotid bruit or murmur, S1-S2 audible. Chest is clear on consultation. Abdomen is soft nontender. No organomegaly, bowel sounds present. Peripheral pulses are present. No peripheral edema. Results - Laboratory Findings CBC and BMP: 09/17/23 12:26 09/17/23 12:26 Abnormal Lab Findings: Abnormal Labs 09/17/23 09/17/23 09/17/23 12:26 12:26 12:26 PT 13.0 H INR 1.2 H D-Dimer 5.46 H Potassium 5.2 H Chloride 108 H Carbon Dioxide 20 L Glucose 102 H Plasma Lactic Acid Paxton Total Bilirubin 2.1 H Troponin I Urine Protein Trace H 09/17/23 09/17/23 12:26 15:08 PT INR D-Dimer Potassium Chloride Carbon Dioxide Glucose Plasma Lactic Acid Paxton 2.9 H* Total Bilirubin Troponin I 0.048 H* Urine Protein Assessment and Plan Assessment: * Subacute ischemic stroke manifesting with mild conduction aphasia. CT head revealed subacute ischemic stroke left temporal parietal region. Patient's current NIH stroke scale is 3, mainly related to aphasia/dysarthria. Patient not a candidate for TPA, as he came outside the window for TPA. Mechanism of stroke most likely due to cardioembolism from atrial flutter/fibrillation. * History of paroxysmal Atrial flutter/fibrillation, stopped taking Xarelto for couple weeks (because said was bleeding excessively) * History of hypertrophic cardiomyopathy * History of atrial flutter ablation in [facility]. * Elevated cardiac enzymes * Abnormal chest x-ray, rule out CHF versus pneumonia * Marijuana use Plan: * Patient has atrial flutter with rapid ventricular rate. Patient's computed tomography scan of head showed subacute ischemic stroke, with no hemorrhagic conversion. Patient is high risk for recurrent strokes. May start heparin without bolus, and maintain PTT as per atrial fibrillation protocol. * 2-D echo with bubble study to rule out PFO * Carotid Doppler, rule out stenosis * Fasting a.m. lipid panel * Hemoglobin A1c * Cardiology consultation for elevated cardiac enzymes, and atrial flutter. * Permissive hypertension for next 24-48 hours * Neuro checks as per protocol. * Telemetry monitoring rule out any arrhythmia * Internal medicine to address abnormal chest x-ray/CTA. * PT, OT, speech therapy * DVT prophylaxis: Patient started on heparin. * Neurology will continue to follow. Thank you for the consult. Time with Patient: Greater than 30
[2023-09-18] MEDS: METOPROLOL SUCCINATE (ER) 50 MG TAB.ER.24H PO SCH ×2 (09:37→20:15)
--- NOTE | 2023-09-18 09:52 | US ---
EXAMINATION TYPE: US carotid duplex BILAT DATE OF EXAM: 09/18/2023 COMPARISON: NONE CLINICAL INDICATION: Male, 43 years old with history of CVA; HTN controlled with meds. Patient state s possible stroke with symptoms of trouble with speech TECHNIQUE: Carotid duplex ultrasound examination. Indirect Doppler criteria was utilized. FINDINGS: EXAM MEASUREMENTS: RIGHT: Peak Systolic Velocity (PSV) cm/sec ----- Right CCA: 50.5 ----- Right ICA: 38.4 ----- Right ECA: 80.1 ICA/CCA ratio: 0.8 RIGHT: End Diastole cm/sec ----- Right CCA: 16.5 ----- Right ICA: 14.9 ----- Right ECA: 32.9 LEFT: Peak Systolic Velocity (PSV) cm/sec ----- Left CCA: 62.7 ----- Left ICA: 51.9 ----- Left ECA: 44.8 ICA/CCA ratio: 0.8 LEFT: End Diastole cm/sec ----- Left CCA: 22.6 ----- Left ICA: 18.4 ----- Left ECA: 8.5 VERTEBRALS (direction of flow): Right Vertebral: Antegrade Left Vertebral: Antegrade Rhythm: Arrhythmia BATH STEWARD NOTES: No elevated velocities or significant stenosis. No plaque or wall thickening. IMPRESSION: Less than 50% stenosis of the bilateral carotid bifurcations. Criteria for Assigning % of Stenosis / Diameter reduction (Estimation based on the indirect measurements of the internal carotid artery velocities (ICA PSV). 1. Normal (no stenosis)=ICA PSV < 125 cm/s: ratio < 2.0: ICA EDV<40 cm/s. 2. Less than 50% stenosis=ICA PSV < 125 cm/s: ratio < 2.0: ICA EDV<40 cm/s. 3. 50 to 69% stenosis=ICA PSV of 125 to 230 cm/s: ration 2.0 ? 4.0: ICA EDV 40-100 cm/s. 4. Greater than 70% stenosis to near occlusion= ICA PSV > 230 cm/s: ratio > 4.0: ICA EDV > 100 cm/s. 5. Near occlusion= ICA PSV velocities may be low or undetectable: variable ratio and ICA EDV. 6. Total occlusion=unable to detect flow.
[2023-09-18] MEDS: APIXABAN 5 MG TAB PO SCH ×2 (11:46→20:14)
[2023-09-18 12:05] VITALS: BMI 21.2
--- NOTE | 2023-09-18 15:02 | XR ---
EXAMINATION TYPE: XR chest 2V DATE OF EXAM: 09/18/2023 COMPARISON: 09/17/2023 INDICATION: Pulmonary edema TECHNIQUE: Frontal and lateral views of the chest are obtained. FINDINGS: The heart size is normal. The pulmonary vasculature is normal. Patchy infiltrates are suprahilar regions. Some right lower lobe infiltrate is present. Subsegmental infiltrate may be at the left base. Correlate for subsegmental atelectasis or pneumonia. IMPRESSION: 1. Bilateral infiltrates. Correlate for pneumonia.
[2023-09-18] MEDS: THIAMINE 100 MG TAB PO SCH (16:17)
[2023-09-18 18:06] LABS: Chol/HDL Ratio 2.67 Ratio; LDL Cholesterol,Calculated 63.4 mg/dL (0.0-131.0)
--- NOTE | 2023-09-18 18:24 | P.CRDCN ---
History of Present Illness Consult date: 09/18/23 History of present illness: HISTORY OF PRESENTING ILLNESS 43-year-old with past medical history of atrial fibrillation on Xarelto. He has prior history of ablation 3. Last ablation performed by Dr. beyer in 2021. He has since relapsed and continues to be in atrial fibrillation. Apparently patient stopped taking his Xarelto because he had significant bleeding after injury and he never resumed taking it. Patient's cousin noticed that this morning he was trying to make an appointment with his doctor's office and not able to comprehend what the collective bargaining specialist was telling. Apparently they made an appointment for him for 10/02/2023 at 10:30 AM, but patient kept on saying "just give me a number". She told him numerous times about the date and the time of appointment, but he kept on saying the same phrase. Patient's cousin noticed that he knew what he wanted to say, but was not coming out correctly. He did not understand what was going on. She also noticed that he was seeing staff while talking to the doctor, that did not make sense. She was telling him correctly, but he was not registering it. Patient at present states that he does not drink significantly, but the last time he drank was on Sunday night (2 days ago) between 5:30 to 8:30 PM. Prior to that he had drank about a 1-1/2 months prior. He drinks some beer egg notch but not much. He states that that night he just stayed quiet and did not talk much. Yesterday on Sunday, he said he was looking at the stuff on his camera on the cell phone, but it was "not coming together"when he was trying to read. He was missing some part of the vision in the right eye. Due to these symptoms, patient's cousin brought into the hospital. Patient denies any slurred speech, facial droop, focal numbness, tingling. CT head revealed subacute ischemic stroke left temporal parietal region REVIEW OF SYSTEMS 14 point review of system is negative except what is mentioned above in HPI. PHYSICAL EXAMINATION Vital signs reviewed. Head: Normocephalic. Eyes: Sclerae nonicteric. Neck: Brisk carotid upstroke, no jugular venous distention. Lungs: Clear to auscultation. Heart: Irregularly irregular, S1-S2, no S3, no murmur or rub. Abdomen: Soft nontender, positive bowel sounds no organomegaly. Extremities: No edema, intact distal pulses. Neuro: Dysarthria, alert oriented, symmetrical face movement ASSESSMENT Sub-acute ischemic CVA Noncompliance to systemic ANTICOAGULATION Persistent atrial fibrillation failed ablation 3. Last ablation in 2021 PLAN Start Eliquis 5 Mg twice a day Discontinue Cardizem. Start metoprolol succinate 50 mg twice a day Continue aspirin 81 mg daily Follow neurology recommendations Past Medical History Past Medical History: Atrial Fibrillation Additional Past Medical History / Comment(s): cardiomyopathy History of Any Multi-Drug Resistant Organisms: None Reported Past Surgical History: No Surgical Hx Reported Additional Past Surgical History / Comment(s): cardiac ablation Past Anesthesia/Blood Transfusion Reactions: No Reported Reaction Past Psychological History: No Psychological Hx Reported Past Alcohol Use History: None Reported Past Drug Use History: Marijuana Medications and Allergies Home Medications Medication Instructions Recorded Confirmed Type Metoprolol Succinate [Toprol XL] 50 mg PO BID 09/17/23 09/17/23 History Pantoprazole [Protonix] 40 mg PO DAILY 09/17/23 09/17/23 History Allergies Allergy/AdvReac Type Severity Reaction Status Date / Time No Known Allergies Allergy Verified 09/17/23 13:26 Physical Exam Vitals: Vital Signs Temp Pulse Pulse Resp BP BP Pulse Ox 09/18/23 16:00 98.2 F 90 16 127/87 99 09/18/23 13:00 75 22 09/18/23 11:24 98.0 F 75 22 119/82 98 09/18/23 11:05 73 09/18/23 08:00 73 24 09/18/23 07:29 98.0 F 73 24 124/87 99 09/18/23 04:00 98.2 F 74 17 122/89 97 09/18/23 02:00 78 09/18/23 00:00 98.2 F 78 17 115/74 98 09/17/23 20:44 98.2 F 75 17 128/92 97 09/17/23 20:00 97.2 F L 75 16 128/92 97 09/17/23 19:02 83 16 116/88 100 Intake and Output 09/18/23 09/18/23 09/18/23 06:59 14:59 22:59 Intake Total 66.542 340 8986 Output Total 200 Balance -133.438 525 8504 Intake: Intake, IV Titration 66.467 20 Amount Diltiazem 125 mg In 20 Sodium Chloride 0.9% 100 ml @ 5 MG/HR 5 mls/hr IV .Q24H [facility] Rx#:[id number] Heparin Sod,Pork in 0.45% 66.467 NaCl 25,000 unit In 0.45 % NaCl 1 250ml.bag @ 12 UNITS/KG/HR 9.253 mls/hr IV .Q24H [facility] Rx#: [id number] Oral 360 1200 Output: Urine 200 Other: Voiding Method Toilet Toilet # Voids 1 Weight 77.111 kg Results 09/17/23 12:26 09/17/23 12:26 Cardiac Enzymes 09/17/23 09/18/23 Range/Units 19:55 00:00 Troponin I 0.077 H* 0.081 H* (0.000-0.034) ng/mL Coagulation 09/18/23 09/18/23 Range/Units 00:00 08:49 APTT 35.1 H 39.9 H (22.0-30.0) sec Lipids 09/18/23 Range/Units 08:45 Triglycerides 61.50 (0.00-149.00) mg/dL Cholesterol 121.00 (0.00-200.00) mg/dL HDL Cholesterol 45.30 (40.00-60.00) mg/dL Cholesterol/HDL Ratio 2.67 Ratio Current Medications Generic Name Dose Route Start Last Admin Trade Name Freq PRN Reason Stop Dose Admin Apixaban 5 mg 09/18/23 11:15 09/18/23 11:46 Apixaban 5 Mg Tab PO 5 mg BID [facility] Administration Protocol Aspirin 81 mg 09/19/23 09:00 Aspirin 81 Mg PO DAILY [facility] Folic Acid 1 mg 09/19/23 12:00 Folic Acid 1 Mg Tab PO DAILY@1200 [facility] Metoprolol Succinate 50 mg 09/17/23 22:15 09/18/23 09:37 Metoprolol Succinate (Er) 50 Mg Tab.Er.24h PO 50 mg BID [facility] Administration Multivitamins 1 each 09/19/23 12:00 Multivitamins, Thera 1 Each Tab PO DAILY@1200 [facility] Thiamine HCl 100 mg 09/18/23 17:30 11/28/23 16:17 Thiamine 100 Mg Tab PO 100 mg BID-W/MEALS ROSHNI Administration Intake and Output 09/18/23 09/18/23 09/18/23 06:59 14:59 22:59 Intake Total 66.591 535 9897 Output Total 200 Balance -133.347 111 9251 Intake: Intake, IV Titration 66.467 20 Amount Diltiazem 125 mg In 20 Sodium Chloride 0.9% 100 ml @ 5 MG/HR 5 mls/hr IV .Q24H [facility] Rx#:[id number] Heparin Sod,Pork in 0.45% 66.467 NaCl 25,000 unit In 0.45 % NaCl 1 250ml.bag @ 12 UNITS/KG/HR 9.253 mls/hr IV .Q24H [facility] Rx#: [id number] Oral 360 1200 Output: Urine 200 Other: Voiding Method Toilet Toilet # Voids 1 Weight 77.111 kg Patient Weight 09/19/23 06:59 Weight 77.111 kg 09/17/23 12:26 09/17/23 12:26
--- NOTE | 2023-09-18 19:31 | HP ---
HISTORY AND PHYSICAL CHIEF COMPLAINTS: Swelling, confusion, change in mental status and as well as weakness of the left side. HISTORY OF PRESENT ILLNESS: This is a 43-year-old gentleman with a past medical history of multiple medical problems including atrial fibrillation, who was admitted with change in mental status and multiple symptomatology. The patient also complains of left-sided weakness. The patient was found to have atrial fibrillation. Subacute ischemic stroke was noted in the left temporoparietal region, and the patient was admitted for further evaluation and treatment. The patient is not a candidate for tPA. The patient is being closely monitored. Multiple consultants are following the patient closely. PAST MEDICAL HISTORY: History of atrial fibrillation. Rest of the history and rest of the chart are also reviewed. HOME MEDICATIONS: Protonix. Doses are reviewed. ALLERGIES: None. FAMILY HISTORY: No history of heart disease or strokes in the family. SOCIAL HISTORY: THC. REVIEW OF SYSTEMS: Fourteen-point review is negative except as mentioned earlier. PHYSICAL EXAMINATION: VITAL SIGNS: Pulse is 75, blood pressure 119/82, respirations 22. HEENT: Conjunctivae are normal. NECK: No jugular venous distention. CARDIOVASCULAR: S1 and S2. RESPIRATORY: Breath sounds diminished at the bases. ABDOMEN: Soft and nontender. LEGS: No edema. NERVOUS SYSTEM: Diffusely weak. SKIN: No ulcers or rashes. JOINTS: No active deforming arthropathy. LABORATORY DATA: Reviewed. ASSESSMENT: 1. Acute left temporoparietal stroke secondary to atrial fibrillation. 2. Atrial fibrillation, paroxysmal. 3. Troponin 0.081. Rule out acute occ-DY-rstaopz-elevation myocardial infarction. 4. THC. 5. Elevated D-dimer. 6. Gait dysfunction. RECOMMENDATIONS AND DISCUSSION: In this 43-year-old gentleman presented with multiple complex medical issues, we will monitor the patient closely. Continue with current medications. Continue with symptomatic treatment. Otherwise, antiplatelet agents and anticoagulants. Closely follow with Surgery. Follow with Neurology and Cardiology. A 2D echo with Doppler will be ordered. The prognosis is guarded because of multiple complex medical issues. Further recommendations to follow. See orders for details. The patient is on Cardizem as well. MMODL / IJN: [id number] /
[2023-09-18] MEDS ORDERED: METOPROLOL SUCCINATE (ER) 50 MG TAB.ER.24H PO STA (22:11)
[2023-09-19] MEDS ORDERED: IOPAMIDOL CONTRAST (ORAL USE) VIAL PO PRN (00:28)
[2023-09-19] MEDS ORDERED: MORPHINE SULFATE 2 MG/ML SYRINGE IVP STA (01:50)
[2023-09-19] MEDS ORDERED: DILTIAZEM DRIP BOLUS FROM BAG 1 MG SOLN IV ONE (01:55)
[2023-09-19] MEDS ORDERED: DILTIAZEM 125 MG in SODIUM CHLORIDE 0.9% 100 ML IV SCH (02:00)
[2023-09-19] MEDS: THIAMINE 100 MG TAB PO SCH (06:28)
--- NOTE | 2023-09-19 07:31 | CA ---
Transthoracic Echo Report Name: Gurpreet Gibson Age: 43 Gender: M : 1980 Exam Date: 09/18/2023 14:07 Exam Location: [facility] Ht (in): 75 Wt (lb): 170 Ordering Physician: Jose A Mejia MD Attending/Referring Phys: Pediatric Cardiologist Marycruz Strickland RDCS Procedure CPT: Indications: acute stroke Cardiac Hx: Technical Quality: Fair Contrast 1: Total Dose (mL): Contrast 2: Total Dose (mL): MEASUREMENTS (Male / Female) Normal Values 2D ECHO LV Diastolic Diameter PLAX 4.5 cm 4.2 - 5.9 / 3.9 - 5.3 cm LV Systolic Diameter PLAX 3.7 cm IVS Diastolic Thickness 1.7 cm 0.6 - 1.0 / 0.6 - 0.9 cm LVPW Diastolic Thickness 1.5 cm 0.6 - 1.0 / 0.6 - 0.9 cm LV Relative Wall Thickness 0.7 RV Internal Dim ED PLAX 2.0 cm LA Volume 119.3 cm??? 18 - 58 / 22 - 52 cm??? LA Volume Index 59.3 cm???/m??? 16 - 28 cm???/m??? M-MODE Aortic Root Diameter MM 2.9 cm LA Systolic Diameter MM 5.1 cm LA Ao Ratio MM 1.8 AV Cusp Separation MM 2.0 cm DOPPLER AV Peak Velocity 76.5 cm/s AV Peak Gradient 2.3 mmHg AV Mean Velocity 49.3 cm/s AV Mean Gradient 1.1 mmHg AV Velocity Time Integral 9.6 cm LVOT Peak Velocity 64.4 cm/s LVOT Peak Gradient 1.7 mmHg LVOT Velocity Time Integral 11.8 cm MV E' Velocity 3.5 cm/s TR Peak Velocity 228.6 cm/s TR Peak Gradient 20.9 mmHg Right Ventricular Systolic Press 24.5 mmHg FINDINGS Left Ventricle Moderately increased left ventricular wall thickness. Left ventricular cavity size normal. Reduced global left ventricular systolic function. Left ventricular ejection fraction is estimated at 25-30%. Right Ventricle Normal right ventricular size and function. Right Atrium Mild right atrial dilatation. . Negative agitated saline bubble study for right to left shunt. Left Atrium Severely increased left atrial volume. Mildly increased left atrial area. Mitral Valve Structurally normal mitral valve. [id number] mitral regurgitation. Aortic Valve Trileaflet aortic valve. No aortic valve stenosis or regurgitation. Tricuspid Valve Structurally normal tricuspid valve. Mild tricuspid regurgitation. Pulmonic Valve Structurally normal pulmonic valve. Trace pulmonic regurgitation. Pericardium Small pericardial effusion. Aorta Normal size aortic root and proximal ascending aorta. CONCLUSIONS Severe LV systolic dysfunction Negative bubble study Mild to moderate mitral regurgitation Previewed by: Dr. Rafael Pozo MD (Electronically Signed) Final Date: 19 September 2023 07:30
[2023-09-19] MEDS ORDERED: HEPARIN SOD,PORK IN 0.45% NACL 25,000 UNIT in 0.45% NACL 1 250ML.BAG IV SCH (08:14)
[2023-09-19] MEDS ORDERED: HEPARIN SODIUM 1,000 UN/ML (10ML VL) IV PRN (08:14)
[2023-09-19] MEDS ORDERED: HEPARIN SODIUM 1,000 UN/ML (10ML VL) IV ONE (08:14)
[2023-09-19] MEDS ORDERED: ASPIRIN 81 MG PO SCH (09:00)
[2023-09-19] MEDS ORDERED: APIXABAN 5 MG TAB PO SCH (10:00)
[2023-09-19] MEDS: METOPROLOL SUCCINATE (ER) 50 MG TAB.ER.24H PO SCH (10:16)
[2023-09-19 11:01] LABS: African American GFR (CKD) 87 (>60 ml/min/1.73 sqM); Anion Gap 10 mmol/L; Blood Urea Nitrogen 16 mg/dL (9-20); Calcium 8.6 mg/dL (8.4-10.2); Carbon Dioxide 23 mmol/L (22-30); Chloride 104 mmol/L (98-107); Glucose 120 mg/dL (74-99); Non-African American GFR(CKD) 75 (>60 ml/min/1.73 sqM); Potassium 4.2 mmol/L (3.5-5.1); Sodium 137 mmol/L (137-145)
[2023-09-19 11:10] LABS: Basophils # (A) 0.1 k/uL (0-0.2); Basophils % (A) 1 %; Eosinophils # (A) 0.1 k/uL (0-0.7); Eosinophils % (A) 1 %; HCT 44.7 % (39.0-53.0); HGB 14.6 gm/dL (13.0-17.5); Lymphocytes # (A) 1.3 k/uL (1.0-4.8); Lymphocytes % (A) 18 %; MCH 29.3 pg (25.0-35.0); MCHC 32.6 g/dL (31.0-37.0); MCV 89.7 fL (80.0-100.0); Mean Platelet Volume 8.4; Monocytes # (A) 0.5 k/uL (0-1.0); Monocytes % (A) 6 %; Neutrophils # (A) 5.2 k/uL (1.3-7.7); Neutrophils % (A) 73 %; Platelet Count 214 k/uL (150-450); RBC 4.98 m/uL (4.30-5.90); RDW 14.1 % (11.5-15.5); WBC 7.1 k/uL (3.8-10.6)
--- NOTE | 2023-09-19 11:30 | P.PN ---
Subjective Progress Note Date: 09/18/23 Patient was seen for a follow-up. Patient is laying comfortably in the bed. Patient states his breathing is better. His speech is more fluent, although still gets a thought block and sometimes difficulty with dressing and some paraphasic errors. No new focal symptoms. Objective - Vital Signs Vital signs: Vital Signs Temp 98.0 F 09/18/23 11:24 Pulse 75 09/18/23 13:00 Resp 22 09/18/23 13:00 BP 119/82 09/18/23 11:24 Pulse Ox 98 09/18/23 11:24 FiO2 Intake & Output 09/17/23 09/18/23 09/18/23 18:59 06:59 18:59 Intake Total 306.467 360 Output Total 200 Balance 106.467 360 Weight 77.111 kg 77.111 kg 77.111 kg Intake: Intake, IV Titration 66.467 Amount Heparin Sod,Pork in 0.45% 66.467 NaCl 25,000 unit In 0.45 % NaCl 1 250ml.bag @ 12 UNITS/KG/HR 9.253 mls/hr IV .Q24H [facility] Rx#: [id number] Oral 240 360 Output: Urine 200 Other: Voiding Method Toilet Toilet # Voids 1 - Exam Mental status is normal. Patient is alert and awake. Patient able to name objects which he was not able to name yesterday like knuckles or earlobe. Patient cannot repeat. He can read. Patient has slightly impaired comprehension, as he was able to point to the window, but not to the door or the ceiling. Patient has moderate peripheral edema. - Labs CBC & Chem 7: 09/19/23 09:34 09/19/23 09:34 Labs: Abnormal Lab Results - Last 24 Hours (Table) 09/17/23 09/17/23 09/17/23 Range/Units 12:26 15:08 17:24 APTT (22.0-30.0) sec Plasma Lactic Acid Paxton 2.9 H* (0.7-2.0) mmol/L Troponin I 0.065 H* (0.000-0.034) ng/mL Urine Protein Trace H (Negative) U Marijuana (THC) Screen Detected H (NotDetected) 09/17/23 09/17/23 09/18/23 Range/Units 19:55 19:55 00:00 APTT 35.1 H (22.0-30.0) sec Plasma Lactic Acid Paxton 2.1 H* (0.7-2.0) mmol/L Troponin I 0.077 H* (0.000-0.034) ng/mL Urine Protein (Negative) U Marijuana (THC) Screen (NotDetected) 09/18/23 09/18/23 Range/Units 00:00 08:49 APTT 39.9 H (22.0-30.0) sec Plasma Lactic Acid Paxton (0.7-2.0) mmol/L Troponin I 0.081 H* (0.000-0.034) ng/mL Urine Protein (Negative) U Marijuana (THC) Screen (NotDetected) Assessment and Plan Assessment: * Subacute ischemic stroke manifesting with mild conduction aphasia. CT head revealed subacute ischemic stroke left temporal parietal region. Patient's current NIH stroke scale is 3, mainly related to aphasia/dysarthria. Patient not a candidate for TPA, as he came outside the window for TPA. Mechanism of stroke most likely due to cardioembolism from atrial flutter/fibrillation. * History of paroxysmal Atrial flutter/fibrillation, stopped taking Xarelto for couple weeks (because said was bleeding excessively) * History of hypertrophic cardiomyopathy * History of atrial flutter ablation in [facility]. * Elevated cardiac enzymes * Abnormal chest x-ray, rule out CHF versus pneumonia * Marijuana use Plan: * Patient has atrial flutter with rapid ventricular rate. Patient's computed tomography scan of head showed subacute ischemic stroke, with no hemorrhagic conversion. Patient is high risk for recurrent strokes. * Patient had side effects from Xarelto, therefore cardiology has switched to Eliquis 5 mg twice a day, completely agree. * 2-D echo revealed severe left ventricular systolic dysfunction with a reduced global left ventricle systolic function, EF 25-30%. Severely increased left atrial volume. Mild right atrial dilation. Negative agitated saline bubble study for [id number]-tq-kynj shunt. Mild to moderate MR. * Carotid Doppler, revealed less than 50% stenosis of the bilateral carotid bifurcation. Antegrade flow in both vertebral arteries. * Fasting a.m. lipid panel cholesterol 121, LDL 63, HDL 45, triglyceride 61. Start Lipitor 20 mg daily. * Hemoglobin A1c 5.9. * Optimize control of blood pressure to normotensive level. * Internal medicine to address abnormal chest x-ray/CTA. * PT, OT, speech therapy * Neurologically clear for discharge, if cleared by IM and cardiology.
[2023-09-19 11:36] VITALS: BP 111/77; PULSE 83; TEMP 98.1
[2023-09-19] MEDS ORDERED: MULTIVITAMINS, THERA 1 EACH TAB PO SCH (12:00)
[2023-09-19] MEDS ORDERED: FOLIC ACID 1 MG TAB PO SCH (12:00)
[2023-09-19 12:39] VITALS: RESP 17
--- NOTE | 2023-09-19 14:50 | P.PN ---
Subjective HISTORY OF PRESENT ILLNESS: 43-year-old with past medical history of atrial fibrillation on Xarelto. He has prior history of ablation 3. Last ablation performed by Dr. beyer in 2021. He has since relapsed and continues to be in atrial fibrillation. Apparently patient stopped taking his Xarelto because he had significant bleeding after injury and he never resumed taking it. Patient's cousin noticed that this morning he was trying to make an appointment with his doctor's office and not able to comprehend what the clinical secretary was telling. Apparently they made an appointment for him for 10/02/2023 at 10:30 AM, but patient kept on saying "just give me a number". She told him numerous times about the date and the time of appointment, but he kept on saying the same phrase. Patient's cousin noticed that he knew what he wanted to say, but was not coming out correctly. He did not understand what was going on. She also noticed that he was seeing staff while talking to the doctor, that did not make sense. She was telling him correctly, but he was not registering it. Patient at present states that he does not drink significantly, but the last time he drank was on Sunday night (2 days ago) between 5:30 to 8:30 PM. Prior to that he had drank about a 1-1/2 months prior. He drinks some beer egg notch but not much. He states that that night he just stayed quiet and did not talk much. Yesterday on Sunday, he said he was looking at the stuff on his camera on the cell phone, but it was "not coming together"when he was trying to read. He was missing some part of the vision in the right eye. Due to these symptoms, patient's cousin brought into the hospital. Patient denies any slurred speech, facial droop, focal numbness, tingling. CT head revealed subacute ischemic stroke left temporal parietal region 09/19/2023 Patient examined this morning at the bedside. Patient currently denies chest pain or pressure. He denies shortness of breath. Patient went into A. fib with RVR overnight. He was started on IV Cardizem. At the time of examination he is in atrial flutter with a heart rate in the 70s. PHYSICAL EXAM: VITAL SIGNS: Reviewed. GENERAL: Well-developed in no acute distress. NECK: Supple. No JVD or thyromegaly LUNGS: Respirations even and unlabored. Lungs essentially clear to auscultation bilaterally. HEART: Irregular rate and rhythm. S1 and S2 heard. EXTREMITIES: Normal range of motion. No clubbing or cyanosis. Peripheral pulses intact. No lower extremity edema ASSESSMENT: Subacute ischemic CVA Noncompliance to systemic anticoagulation Persistent atrial fibrillation/typical atrial flutter with controlled sreekanth tricular rate History of failed ablation 3. Last ablation in 2021 PLAN: Continue oral anticoagulation with Eliquis Continue metoprolol succinate 50 mg twice a day Discontinue IV Cardizem Medication compliance reinforced with patient who verbalized understanding Patient is stable from a cardiac perspective He is to follow up post discharge in the office Nurse practitioner note has been reviewed by physician. Signing provider agrees with the documented findings, assessment, and plan of care. Objective - Vital Signs Vital signs: Vital Signs Temp 98.1 F 09/19/23 11:09 Pulse 83 09/19/23 11:09 Resp 17 09/19/23 12:32 BP 111/77 09/19/23 11:09 Pulse Ox 97 09/19/23 11:09 FiO2 Intake & Output 09/18/23 09/19/23 09/19/23 18:59 06:59 18:59 Intake Total 1580 333.250 Balance 1580 333.250 Weight 77.111 kg Intake: IV 10 Invasive Line 1 10 Intake, IV Titration 20 85.250 Amount Diltiazem 125 mg In 85.250 Sodium Chloride 0.9% 100 ml @ 10 MG/HR 10 mls/hr IV .[id number] [facility] Rx#: [id number] Diltiazem 125 mg In 20 Sodium Chloride 0.9% 100 ml @ 5 MG/HR 5 mls/hr IV .Q24H [facility] Rx#:[id number] Oral 1560 238 Other: Voiding Method Toilet Toilet Toilet # Voids 1 2 - Labs CBC & Chem 7: 09/19/23 09:34 09/19/23 09:34 Labs: Abnormal Lab Results - Last 24 Hours (Table) 09/19/23 Range/Units 09:34 Glucose 120 H (74-99) mg/dL
[2023-09-19] MEDS ORDERED: ATORVASTATIN 20 MG TAB PO SCH (21:00)
--- NOTE | 2023-09-19 23:26 | P.DS ---
Providers Date of admission: 09/17/23 17:01 Expected date of discharge: 09/19/23 Attending physician: Kirsten Jack Consults: 09/17/23 17:01 Consult Physician Routine Consulting Provider: [facility] Consult Reason/Comments: Atrial flutter with rapid ventricular response Do you want consulting provider notified?: Yes Consult Physician Routine Consulting Provider: Jose A Mejia Consult Reason/Comments: CVA Do you want consulting provider notified?: Already Contacted Primary care physician: Alex Benavides Hospital Course: Final diagnosis Acute left temporal parietal stroke secondary to atrial fibrillation Atrial fibrillation, persistent Troponin 0.081, ruled out nstemi Continue THC use Elevated d-dimer with no evidence of PE Gait dysfunction Noncompliance with medication History of cardiac ablation 3 GI prophylaxis DVT prophylaxis Full code Discharge disposition Patient is being discharged in a stable condition with guarded prognosis to home. Patient will follow-up with Dr. Benavides in the outpatient setting upon discharge. Patient is to continue with eliquis as well as statin therapy and close outpatient follow-up with cardiology and neurology as scheduled. Total time taken is greater than 35 minutes. Hospital course This is a 43-year-old male who was recently admitted with change in mental status and left-sided weakness with neurology as well as cardiology following. Patient was noted to have atrial fibrillation and noncompliance with medications in the outpatient setting. Patient was found to have subacute ischemic stroke in the left temporal parietal region. Patient continues with some left-sided weakness in upper extremity and was seen and evaluated by neurology recommending outpatient follow-up and has been cleared for discharge today. Patient is noncompliant with medication as he was previously on xarelto and reports it was not helping him feel better. Please refer to other consultation notes for further HPI. Currently no reports of chest pain, shortness of breath, or palpitations. Patient is afebrile. No reports of nausea or vomiting and patient is tolerating diet. Patient will be discharged home today. Guarded prognosis and high risk for readmissions given patient's continued noncompliance with medications. Physical exam: Gen: This is a 43-year-old male who is awake, alert and oriented 3, well-develo ped, well-nourished HEENT: Head is atraumatic, normocephalic. Pupils equal, round. Sclerae is anicteric. NECK: Supple. No JVD. No lymphadenopathy. No thyromegaly. LUNGS: Clear to auscultation. No wheezes or rhonchi. No intercostal retractions. HEART: S1, S2 are muffled ABDOMEN: Soft. Bowel sounds are present. No masses. No tenderness. EXTREMITIES: No pedal edema. No calf tenderness. Mild left-sided weakness noted 4/5 in strength of the left upper extremity NEUROLOGICAL: Patient is awake, alert and oriented x3. Cranial nerves 2 through 12 are grossly intact. Please refer to medication reconciliation sheet for a list of medications. The impression and plan of care has been dictated by Hortencia Barlow, Nurse Practitioner as directed. Dr. Guero MD I have performed a history and examination and MDM of this patient, discussed the same with the dictator, and agree with the dictator's assessment and plan as written ,documented as a scribe. Based on total visit time, I have performed more than 50% of the visit. Patient Condition at Discharge: Fair Plan - Discharge Summary Discharge Rx Participant: No New Discharge Prescriptions: New Aspirin 81 mg PO DAILY #30 tab Apixaban [Eliquis] 5 mg PO BID #60 tab Atorvastatin [Lipitor] 20 mg PO HS #30 tab Multivitamins, Thera [Multivitamin (formulary)] 1 each PO DAILY@1200 #30 tab Folic Acid 1 mg PO DAILY@1200 #30 tab Thiamine [Vitamin B-1] 100 mg PO BID-W/MEALS #60 tab Continue Metoprolol Succinate [Toprol XL] 50 mg PO BID Pantoprazole [Protonix] 40 mg PO DAILY Discharge Medication List Metoprolol Succinate [Toprol XL] 50 mg PO BID 09/17/23 [History] Pantoprazole [Protonix] 40 mg PO DAILY 09/17/23 [History] Apixaban [Eliquis] 5 mg PO BID #60 tab 09/19/23 [Rx] Aspirin 81 mg PO DAILY #30 tab 09/19/23 [Rx] Atorvastatin [Lipitor] 20 mg PO HS #30 tab 09/19/23 [Rx] Folic Acid 1 mg PO DAILY@1200 #30 tab 09/19/23 [Rx] Multivitamins, Thera [Multivitamin (formulary)] 1 each PO DAILY@1200 #30 tab 09/19/23 [Rx] Thiamine [Vitamin B-1] 100 mg PO BID-W/MEALS #60 tab 09/19/23 [Rx] Follow up Appointment(s)/Referral(s): Chavo Grant MD [Medical Doctor] - 1 Week Alex Benavides [Primary Care Provider] - 09/20/23 2:45 pm () Naty Anne MD [Medical Doctor] - 1 Week (Office only schedules with patient. Please call to schedule follow up. ) Patient Instructions/Handouts: Ischemic Stroke (IP) Activity/Diet/Wound Care/Special Instructions: Activity Limited until follow-up Follow-up with primary care provider on discharge Follow-up with neurology outpatient Follow-up with cardiology outpatient Continue taking medications as prescribed Please talk to Dr. Benavides regarding a speech therapy referral then call Britt Salguero Speech Therapist to schedule therapy [phone] Discharge/Stand Alone Forms: Who Do I Call?, Personal Internal Control Manager Discharge Disposition: HOME SELF-CARE
--- NOTE | 2023-09-19 23:34 | DS ---
DISCHARGE SUMMARY FINAL DIAGNOSES: 1. Acute left temporoparietal stroke secondary to atrial fibrillation. 2. Atrial fibrillation, paroxysmal. 3. Troponin 0.081, myocardial infarction unlikely per Cardiology. 4. THC. 5. Elevated D-dimer. 6. Gait dysfunction. 7. History of noncompliance. DISCHARGE DISPOSITION: The patient was discharged in stable condition, guarded prognosis. Discharge cleared by multiple consultants. HISTORY OF PRESENT ILLNESS: This 43-year-old gentleman presented with weakness and left temporoparietal stroke. The patient was not taking anticoagulation because of noncompliance. Otherwise, Cardiology, neurology saw the patient, the patient is stable. The patient was discharged home in stable condition. PHYSICAL EXAMINATION: VITALS: Stable. CARDIOVASCULAR: S1, S2. ABDOMEN: Soft. NERVOUS SYSTEM: No focal deficits. Mild diffuse weakness. The patient will be recommended to take aspirin 81 mg, Eliquis 5 mg b.i.d., and Lipitor 20 mg. Follow up with Dr. Benavides and Neurology as recommended. Please refer to the discharge reconciliation medication for details. Once again the patient is stable but overall prognosis is guarded. The importance of compliance also stressed to the patient. MMODL / IJN: [id number] /
== END 2023-09-19 15:07 | disposition home or self-care (01) | DRG 45 ==
LOC: EC 11:33 → 3SCARD 17:01
PROVIDERS: ADMIT Hospitalist; ATTEND Hospitalist
DX: I63.9 Cerebral infarction, unspecified (principal); T45.516A Underdosing of anticoagulants, initial encounter; Z20.822 Contact with and (suspected) exposure to COVID-19; I42.2 Other hypertrophic cardiomyopathy; I48.19 Other persistent atrial fibrillation; I48.3 Typical atrial flutter; I08.1 Rheumatic disorders of both mitral and tricuspid valves; Z86.73 Personal history of transient ischemic attack (TIA), and cerebral infarction without residual deficits; R29.703 NIHSS score 3; R47.01 Aphasia; R47.1 Dysarthria and anarthria; Z79.01 Long term (current) use of anticoagulants; Z91.128 Patient's intentional underdosing of medication regimen for other reason; Z91.148 Patient's other noncompliance with medication regimen for other reason; Z79.899 Other long term (current) drug therapy; Z91.199 Patient's noncompliance with other medical treatment and regimen due to unspecified reason; X58.XXXA Exposure to other specified factors, initial encounter
CPT/HCPCS: 36415; 70450; 71046; 71275; 80048; 80053; 80061; 80306; 80320; 81003; 82803; 83036; 83605; 83735; 83880; 84484; 85025; 85379; 85610; 85730; 87636; 93005; 93306; 93880; 96365; 96366; 96368; 99291

== ENCOUNTER 2023-09-19 22:19 | Emergency (ER) | payer OTHER ==
[2023-09-19 22:58] VITALS: BP 127/94; PULSE 57; RESP 18; TEMP 97.8
--- NOTE | 2023-09-19 23:59 | ED ---
Recheck HPI - General Chief Complaint: Recheck/Abnormal Lab/Rx Stated Complaint: Medication issues Time Seen by Provider: 09/19/23 22:56 Source: patient, RN notes reviewed Mode of arrival: ambulatory Limitations: no limitations - History of Present Illness Initial Comments: This is a 43-year-old male who presents to the emergency department for problems with medications. Patient was discharged from here earlier today after being diagnosed with a stroke. They increased his metoprolol from 25 mg twice daily to 50 mg twice daily. Patient had been on 25 mg twice daily for several years. States that since increasing the dose of Metoprolol, he has had a lot of abdominal upset and he is refusing to take this dose moving forward. He did take 50 mg this morning, but is refusing to take an evening dose. His is concerned about him missing a dose of this medication and having another stroke, prompting her to bring him to the emergency department. They do still have plenty of the 25 mg tablets at home and do not need a refill on this. Patient is willing to continue on the 25 mg twice daily dose. - Related Data Home Medications Medication Instructions Recorded Confirmed Metoprolol Succinate [Toprol XL] 50 mg PO BID 09/17/23 09/17/23 Pantoprazole [Protonix] 40 mg PO DAILY 09/17/23 09/17/23 Previous Rx's Medication Instructions Recorded Apixaban [Eliquis] 5 mg PO BID #60 tab 09/19/23 Aspirin 81 mg PO DAILY #30 tab 09/19/23 Atorvastatin [Lipitor] 20 mg PO HS #30 tab 09/19/23 Folic Acid 1 mg PO DAILY@1200 #30 tab 09/19/23 Multivitamins, Thera [Multivitamin 1 each PO DAILY@1200 #30 tab 09/19/23 (formulary)] Thiamine [Vitamin B-1] 100 mg PO BID-W/MEALS #60 tab 09/19/23 Allergies Allergy/AdvReac Type Severity Reaction Status Date / Time No Known Allergies Allergy Verified 09/17/23 13:26 Review of Systems ROS Statement: Those systems with pertinent positive or pertinent negative responses have been documented in the HPI. ROS Other: All systems not noted in ROS Statement are negative. Past Medical History Past Medical History: Atrial Fibrillation Additional Past Medical History / Comment(s): cardiomyopathy History of Any Multi-Drug Resistant Organisms: None Reported Past Surgical History: No Surgical Hx Reported Additional Past Surgical History / Comment(s): cardiac ablation Past Anesthesia/Blood Transfusion Reactions: No Reported Reaction Past Psychological History: No Psychological Hx Reported Past Alcohol Use History: None Reported Past Drug Use History: Marijuana General Exam Limitations: no limitations General appearance: alert, in no apparent distress Head exam: Present: atraumatic, normocephalic, normal inspection Respiratory exam: Present: normal lung sounds bilaterally. Absent: respiratory distress, wheezes, rales, rhonchi, stridor Cardiovascular Exam: Present: regular rate, normal rhythm, normal heart sounds. Absent: systolic murmur, diastolic murmur, rubs, gallop, clicks Neurological exam: Present: alert, oriented X3, CN II-XII intact Psychiatric exam: Present: normal affect, normal mood Skin exam: Present: warm, dry, intact, normal color. Absent: rash Course Vital Signs 09/19/23 22:31 Temperature 97.8 F Pulse Rate 57 L Respiratory 18 Rate Blood Pressure 127/94 O2 Sat by Pulse 100 Oximetry Medical Decision Making - Medical Decision Making This is a 43-year-old male who presents to the emergency department for refusal to take medication. Was pt. sent in by a medical professional or institution? @ -No Did you speak to anyone other than the patient for history? @ -His provided the majority of the information. Did you review nursing and triage notes? @ -Yes, and I agree, it is accurate with regards to the patient's symptoms. Were old charts reviewed? @ -Discharge summary from 09/19/23 indicating the Metoprolol is being increased from 25mg BID to 50mg BID. Differential Diagnosis? @ -Not applicable EKG interpreted by me (3pts min.)? @ -Not obtained X-rays interpreted by me (1pt min.)? @ -Not obtained CT interpreted by me (1pt min.)? @ -Not obtained U/S interpreted by me (1pt. min.)? @ -Not obtained What testing was considered but not performed? (CT, X-rays, U/S, labs)? Why? @ -None What meds were considered but not given? Why? @ -None Did you discuss the management of the patient with other professionals? @ -No Did you reconcile home meds? @ -No Was smoking cessation discussed for >3mins.? @ -No Was critical care preformed (if so, how long)? @ -No Were there social determinants of health that impacted care today? How? (Homelessness, low income, unemployed, alcoholism, drug addiction, transportation, low edu. Level, literacy, decrease access to med. care, fdc, rehab)? @ -No Was there de-escalation of care discussed even if they declined? (Discuss DNR or withdrawal of care, Hospice)? @ -No What co-morbidities impacted this encounter? (DM, HTN, Smoking, COPD, CAD, Cancer, CVA, Hep., AIDS, mental health diagnosis, sleep apnea, morbid obesity)? @ -CVA, A-fib Was patient admitted / discharged? @ -Discharged. Patient is alert and oriented 4 and is in charge of his own decision making. Discussed with his that we cannot force him to take the medication. His current vital signs do demonstrate well controlled blood pressure and a lower heart rate of 57. If he will not take the 50 mg twice daily, 25 mg twice daily would be more beneficial than not taking anything, however, I did make it very clear that the specialists would like him on 50mg twice daily. Patient expresses understanding and was discharged home in stable condition. Undiagnosed new problem with uncertain prognosis? @ -None Drug Therapy requiring intensive monitoring for toxicity (Heparin, Nitro, Insulin, Cardizem)? @ -None Were any procedures done? @ -None Diagnosis/symptom? @ -Medication refused Acute, or Chronic, or Acute on Chronic? @ -Acute Uncomplicated (without systemic symptoms) or Complicated (systemic symptoms)? @ -Uncomplicated Side effects of treatment? @ -None Exacerbation, Progression, or Severe Exacerbation] @ -Not applicable Poses a threat to life or bodily function? @ -This will depend on if he continues to avoid the higher dose of the medication and how his body responds to this. Return precautions reviewed in depth, the patient is instructed to return to the emergency department with any new, worsening, or concerning symptoms. Patient verbalized understanding. This case was discussed in detail with the attending ED physician, Dr. Reyes. Presentation, findings, and treatment plan discussed in detail as well. Disposition Clinical Impression: Medication refused Disposition: HOME SELF-CARE Additional Instructions: Return to the emergency department with any new, worsening, or concerning symptoms. He was given the Metoprolol, 50mg at 10am. If he will not take it tonight, resume the 25mg twice daily dosing at 10am or earlier tomorrow. Follow up with his primary care provider as scheduled. Is patient prescribed a controlled substance at d/c from ED?: No Referrals: Alex Benavides [Primary Care Provider] - 1-2 days
== END 2023-09-20 00:45 | disposition home or self-care (01) ==
LOC: EC 22:19
DX: R10.9 Unspecified abdominal pain (principal); T44.7X6A Underdosing of beta-adrenoreceptor antagonists, initial encounter; Z91.148 Patient's other noncompliance with medication regimen for other reason; F12.90 Cannabis use, unspecified, uncomplicated; Z79.899 Other long term (current) drug therapy
CPT/HCPCS: 99283